=== PATIENT | female | born 1935 | race Caucasian/White ===

== ENCOUNTER 2017-03-16 11:53 | Inpatient (IN) | payer MEDICARE, MEDICAID ==
[2017-03-16 11:53] VITALS: BMI 38.7
[2017-03-16 12:49] LABS: BASO # 0.1 K/uL (0.0-0.2); BASO % 0.4 % (0.0-2.0); EOS # 0.2 K/uL (0.0-0.7); EOS % 1.5 % (0.0-4.0); LYMPH # 1.2 K/uL (1.0-4.3); LYMPH % 8.9 % (20.0-40.0); MEAN CELL VOLUME 73.5 fL (81.0-99.0); MEAN CORPUSCULAR HEMOGLOBIN 23.1 pg (27.0-31.0); MEAN CORPUSCULAR HGB CONC 31.4 g/dL (33.0-37.0); MEAN PLATELET VOLUME 8.4 fL (7.2-11.7); MONO # 0.9 K/uL (0.0-0.8); MONO % 6.8 % (0.0-10.0); PLATELET COUNT 259 K/uL (130-400); RED CELL DISTRIBUTION WIDTH 14.8 % (11.5-14.5)
[2017-03-16 12:58] LABS: INR 1.1
[2017-03-16 13:02] LABS: CHLORIDE 101 mmol/L (98-107); SODIUM 138 mmol/L (132-148)
[2017-03-16 13:03] LABS: GFR AFRICAN-AMERICAN > 60
[2017-03-16 13:04] LABS: ALB/GLOB RATIO 1.1 (1.0-2.1); ALKALINE PHOSPHATASE 111 U/L (38-126); ALT/SGPT 20 U/L (9-52); AST/SGOT 22 U/L (14-36); BILIRUBIN,TOTAL 0.6 mg/dL (0.2-1.3); BLOOD UREA NITROGEN 27 mg/dL (7-17); CALCIUM 8.4 mg/dl (8.6-10.4); CARBON DIOXIDE 28 mmol/L (22-30); GLUCOSE,RANDOM 142 mg/dL (65-105); TOTAL PROTEIN 7.1 g/dL (6.3-8.3)
[2017-03-16 13:09] LABS: EOSINOPHIL 2 % (0-4); TOTAL CELLS COUNTED 100
[2017-03-16 13:10] LABS: NEUTROPHIL 78 % (50-75)
--- NOTE | 2017-03-16 13:15 | C.PDOC ---
History Of Present Illness 81-year-old female presents to the emergency department with complaints of worsening pain to right leg and foot x6 days. Patient states she fell two months ago, was not see in ED or by physician at the time, however symptoms resolved. Patient typically ambulates with a walker at home. She states this pain has been persistent and worsening, making it diffcult for her to ambulate. She denies fever, chest pain, shortness of breath, rash, discharge. Time Seen by Provider: 03/16/17 12:03 Chief Complaint (Nursing): Lower Extremity Problem/Injury History Per: Patient History/Exam Limitations: no limitations Onset/Duration Of Symptoms: Days Current Symptoms Are (Timing): Still Present Severity: Moderate Past Medical History Reviewed: Historical Data, Nursing Documentation, Vital Signs Vital Signs: Last Vital Signs Temp 99.2 F 03/20/17 17:37 Pulse 85 03/20/17 17:37 Resp 20 03/20/17 17:37 BP 144/75 03/20/17 17:37 Pulse Ox 95 03/20/17 17:37 - Medical History PMH: Asthma, COPD, Diabetes, HTN, Hypercholesterolemia Family History: States: No Known Family Hx - Social History Hx Tobacco Use: No Hx Alcohol Use: No Hx Substance Use: No - Immunization History Hx Tetanus Toxoid Vaccination: No Hx Influenza Vaccination: Yes Hx Pneumococcal Vaccination: Yes Review Of Systems Except As Marked, All Systems Reviewed And Found Negative. Constitutional: Negative for: Fever Cardiovascular: Negative for: Chest Pain, Palpitations Respiratory: Negative for: Cough, Shortness of Breath Musculoskeletal: Positive for: Leg Pain (right). Negative for: Back Pain Neurological: Negative for: Weakness, Numbness Physical Exam - Physical Exam Appears: Non-toxic, No Acute Distress, Other (Morbidly obese) Skin: Warm, Dry, No Rash Head: Atraumatic, Normacephalic Eye(s): bilateral: Normal Inspection Oral Mucosa: Moist Cardiovascular: Rhythm Regular Respiratory: Normal Breath Sounds, No Rales, No Rhonchi, No Wheezing Gastrointestinal/Abdominal: Normal Exam, Bowel Sounds, Soft, No Tenderness Back: Normal Inspection, No Vertebral Tenderness, No Paraspinal Tenderness Extremity: Tenderness, Capillary Refill (<2 seconds all digits ), No Deformity, Other (Difficult to appreciate significant swelling due to body habitus, however right lower leg/upper foot warm to touch, with TTP and mild erythema) Pulses: Left Dorsalis Pedis: Normal, Right Dorsalis Pedis: Normal Neurological/Psych: Oriented x3, Normal Motor, Normal Sensation ED Course And Treatment - Laboratory Results Result Diagrams: 03/20/17 08:02 03/20/17 08:02 O2 Sat by Pulse Oximetry: 95 (RA) Pulse Ox Interpretation: Normal - Other Rad right foot Xray X-Ray: Interpreted by Me, Viewed By Me (no fractures/dislocations) right knee xray X-Ray: Interpreted by Me, Viewed By Me (no fractures/dislocations, (+) arthritic changes) Progress Note: Bloodwork, X-Ray R foot and knee, and venous doppler ordered and reviewed. Patient given IV toradol for pain. Dose of IV Vancomycin and Cefepime given for suspected cellulitis. Venous doppler (-) for acute DVT. - Physician Consult Information Physician Contacted: Jess John Outcome Of Conversation: Discussed patient wit Dr. Austin John, agrees with admission for right leg cellulitis, inability to ambulate, unsafe discharge home. Disposition - Disposition Disposition: HOSPITALIZED Disposition Time: 16:05 Condition: STABLE - Clinical Impression Clinical Impression: Cellulitis of right leg, Inability to ambulate due to multiple joints - Scribe Statement The provider has reviewed the documentation as recorded by the Scribfaye Wright All medical record entries made by the Scribe were at my direction and personally dictated by me. I have reviewed the chart and agree that the record accurately reflects my personal performance of the history, physical exam, medical decision making, and the department course for this patient. I have also personally directed, reviewed, and agree with the discharge instructions and disposition. Decision To Admit - Pt Status Changed To: Hospital Disposition Of: Inpatient - Admit Certification Admit to Inpatient:: After my assessment, the patient will require hospitalization for at least two midnights. This is because of the severity of symptoms shown, intensity of services needed, and/or the medical risk in this patient being treated as an outpatient. - InPatient: Physician Admission Certification: I certify that this patient requires 2 or more midnights of care for the following reason:: see notes - . Bed Request Type: Regular Admitting Physician: Jess John Patient Diagnosis: Cellulitis of right leg, Inability to ambulate due to multiple joints
[2017-03-16 13:19] LABS: POTASSIUM 4.5 mmol/L (3.6-5.2)
--- NOTE | 2017-03-16 13:58 | RAD ---
PROCEDURE: Right Knee Radiographs. HISTORY: right knee/lower leg pain COMPARISON: None. FINDINGS: BONES: Normal. No fracture. JOINTS: Tricompartmental degenerative osteoarthritis. JOINT EFFUSION: Questionable trace joint effusion. OTHER FINDINGS: None. IMPRESSION: No acute fracture seen. Tricompartmental DJD.
--- NOTE | 2017-03-16 14:42 | VASCLAB ---
PROCEDURE: Right Lower Extremity Venous Duplex Exam. HISTORY: right leg/foot and swelling, r/o dvt PRIORS: None. TECHNIQUE: Right common femoral, femoral, popliteal and posterior tibial, peroneal and great saphenous veins were evaluated. Flow was assessed with color Doppler, compressibility, assessment of phasic flow and augmentation response. Report prepared by Saleem Hernandez, LORI, RVT FINDINGS: RIGHT: 1. Common Femoral Vein: 1.1. Compressibility - Fully compressible: Thrombus - None: Flow - Phasic: Augmentation -Normal: Reflux - None. 2. Femoral Vein: 2.1. Compressibility - Fully compressible: Thrombus - None: Flow - Phasic: Augmentation -Normal: Reflux - None. 3. Popliteal Vein: 3.1. Compressibility - Fully compressible: Thrombus - None: Flow - Phasic: Augmentation -Normal: Reflux - None. 4. Posterior Tibial Vein: 4.1. Compressibility - Fully compressible: Thrombus - None: Flow - Phasic: Augmentation -Normal: Reflux - None. 5. Peroneal Vein: 5.1. Compressibility - Fully compressible: Thrombus - None: Flow - Phasic: Augmentation -Normal: Reflux - None. 6. Great Saphenous Vein: 6.1. Compressibility - Fully compressible: Thrombus -None: Flow - Phasic: Augmentation - Normal: Reflux - None. OTHER FINDINGS: IMPRESSION: No evidence of deep or superficial vein thrombosis of the right lower extremity with excellent venous flow. Normal valve function noted of the right side. Normal venous flow noted in the left common femoral vein.
[2017-03-16] MEDS ORDERED: Cefepime 1 GM in Sodium Chloride 0.9% 50 ML IVPB STA (16:01)
--- NOTE | 2017-03-16 17:00 | RAD ---
PROCEDURE: Right foot dated 03/16/2017 HISTORY: Right foot pain. COMPARISON: No prior study available comparison FINDINGS: BONES: Current study reveals no definitive radiographic evidence of acute displaced fracture nor dislocation. The osseous structures appear intact so far as can be seen. Mild hallux valgus deformity with overgrowth of the head of the 1st metatarsal and mild DJD 1st MTP joint. There is mild prominence of the soft tissues overlying the medial aspect of the head and more tarsal and MTP joint. In addition, there is mild subcutaneous infiltration changes suggesting edema. Rule out edema related to vascular causes such as pulmonary edema/ CHF or venous stasis. Possibility of cellulitis not excluded Small posterior and plantar calcaneal surface enthesophyte JOINTS: As above. SOFT TISSUES: Normal. OTHER FINDINGS: No radiopaque foreign body seen IMPRESSION: No definitive radiographic evidence of acute displaced fracture nor dislocation. Mild hallux valgus deformity with overgrowth head 1st metatarsal and mild DJD 1st MTP joint. Mild diffuse infiltration changes within the subcutaneous tissues suggesting edema; rule out pulmonary edema/ CHF versus venous stasis did cellulitis not completely excluded.
--- NOTE | 2017-03-16 18:24 | CP.PCM.HP ---
Past Patient History - Past Social History Smoking Status: Never Smoked - CARDIAC Hx Hypercholesterolemia: Yes Hx Hypertension: Yes - PULMONARY Hx Asthma: Yes Hx Chronic Obstructive Pulmonary Disease (COPD): Yes - GASTROINTESTINAL Hx Gastroesophageal Reflux: Yes - PSYCHIATRIC Hx Substance Use: No - ANESTHESIA Hx Anesthesia: No Meds Allergies/Adverse Reactions: Allergies Allergy/AdvReac Type Severity Reaction Status Date / Time No Known Allergies Allergy Verified 11/14/13 10:24 Physical Exam - Constitutional Appears: Well - Head Exam Head Exam: ATRAUMATIC, NORMAL INSPECTION, NORMOCEPHALIC - Eye Exam Eye Exam: EOMI, Normal appearance, PERRL Pupil Exam: NORMAL ACCOMODATION, PERRL - ENT Exam ENT Exam: Mucous Membranes Moist, Normal Exam - Neck Exam Neck exam: Positive for: Normal Inspection - Respiratory Exam Respiratory Exam: Decreased Breath Sounds - Cardiovascular Exam Cardiovascular Exam: REGULAR RHYTHM, +S1, +S2 - GI/Abdominal Exam GI & Abdominal Exam: Diminished Bowel Sounds, Soft - Rectal Exam Rectal Exam: Deferred Results - Vital Signs Recent Vital Signs: Last Vital Signs Temp 97.8 F 03/16/17 17:20 Pulse 90 03/16/17 17:20 Resp 18 03/16/17 17:20 BP 147/75 03/16/17 17:20 Pulse Ox 95 03/16/17 17:20 - Labs Result Diagrams: 03/16/17 12:46 03/16/17 12:46
[2017-03-16] MEDS ORDERED: HYDROmorphone 1 mg/ml ISec IVP PRN (20:49)
[2017-03-16] MEDS ORDERED: HYDROmorphone 1 mg/ml ISec ONE (21:02)
[2017-03-16] MEDS: Ranolazine 500 mg Extended Release Tablets PO SCH (22:47)
[2017-03-17] MEDS ORDERED: Pantoprazole 40 mg EC Tab PO SCH (10:00)
[2017-03-17] MEDS ORDERED: [UNRECOGNIZED DRUG - OTHER] PO SCH (10:00)
[2017-03-17] MEDS ORDERED: Home Med 1 UNIT (Leflunomide [Arava] 20 MG) PO SCH (10:00)
[2017-03-17] MEDS: Pantoprazole 40 mg EC Tab PO SCH (10:26)
[2017-03-17] MEDS: Ranolazine 500 mg Extended Release Tablets PO SCH ×2 (10:27→21:25)
[2017-03-17] MEDS: Enoxaparin 40 mg Syringe SC SCH (10:58)
--- NOTE | 2017-03-17 13:30 | CP.PCM.PN ---
Subjective - Date & Time of Evaluation Date of Evaluation: 03/17/17 Time of Evaluation: 08:40 - Subjective Subjective: clinically same Objective - Vital Signs/Intake and Output Vital Signs (last 24 hours): Temp Pulse Resp BP Pulse Ox 98.4 F 86 20 130/74 96 03/17/17 07:31 03/17/17 07:31 03/17/17 07:31 03/17/17 10:30 03/17/17 07:31 Intake and Output: 03/17/17 03/17/17 06:59 18:59 Intake Total 300 Balance 300 - Medications Medications: Current Medications Aspirin (Ecotrin) 81 mg PO DAILY [facility] Last Admin: 03/17/17 10:25 Dose: 81 mg Colchicine (Colocrys) 0.6 mg PO BID [facility] Last Admin: 03/17/17 10:27 Dose: 0.6 mg Enoxaparin Sodium (Lovenox) 40 mg SC DAILY [facility] Last Admin: 03/17/17 10:58 Dose: 40 mg Furosemide (Lasix) 20 mg PO DAILY [facility] Last Admin: 03/17/17 10:30 Dose: 20 mg Glimepiride (Amaryl) 1 mg PO BID [facility] Last Admin: 03/17/17 10:51 Dose: 1 mg Home Med (Albuterol 0.083%) 1 unit NEB PRN PRN PRN Reason: Wheezing Home Med (Fluticasone/Vilanterol [Breo Ellipta 100-25 Mcg Inh]) 1 each IH DAILY [facility] Home Med (Leflunomide [Arava]) 20 mg PO DAILY [facility] Home Med (Vit C/E/Zn/Coppr/Lutein/Zeaxan [Preservision Areds 2 Softgel]) 1 each PO BID [facility] Hydromorphone HCl (Dilaudid) 1 mg IVP Q8H PRN PRN Reason: Pain, moderate (4-7) Last Admin: 03/16/17 21:09 Dose: 1 mg Cefepime HCl 1 gm/ Dextrose 50 mls @ 100 mls/hr IVPB Q12H [facility] Last Admin: 03/17/17 08:05 Dose: 100 mls/hr Ibuprofen (Motrin Tab) 600 mg PO TID [facility] Last Admin: 03/17/17 10:53 Dose: 600 mg Metformin HCl (Glucophage Xr) 750 mg PO BID [facility] Last Admin: 03/17/17 10:27 Dose: 750 mg Methimazole (Tapazole) 10 mg PO Q7D [facility] Last Admin: 03/17/17 10:58 Dose: 10 mg Methimazole (Tapazole) 10 mg PO Q7D [facility] Metoprolol Tartrate (Lopressor) 100 mg PO BID [facility] Last Admin: 03/17/17 10:25 Dose: 100 mg Pantoprazole Sodium (Protonix Ec Tab) 40 mg PO DAILY [facility] Last Admin: 03/17/17 10:25 Dose: 40 mg Pantoprazole Sodium (Protonix Ec Tab) 40 mg PO DAILY [facility] Last Admin: 03/17/17 10:26 Dose: Not Given Pneumococcal Polyvalent Vaccine (Pneumovax 23 Vaccine) 0.5 ml IM .ONCE ONE Stop: 03/18/17 10:01 Ranolazine (Ranexa) 500 mg PO Q12 [facility] Last Admin: 03/17/17 10:27 Dose: 500 mg - Labs Labs: PT 12.1 SECONDS (9.7-12.2) 03/16/17 12:46 INR 1.1 03/16/17 12:46 APTT 32 SECONDS (21-34) 03/16/17 12:46 - Constitutional Appears: Well - Head Exam Head Exam: ATRAUMATIC, NORMAL INSPECTION, NORMOCEPHALIC - Eye Exam Eye Exam: EOMI, Normal appearance, PERRL Pupil Exam: NORMAL ACCOMODATION, PERRL - ENT Exam ENT Exam: Mucous Membranes Moist, Normal Exam - Neck Exam Neck Exam: Full ROM, Normal Inspection. absent: Lymphadenopathy - Respiratory Exam Respiratory Exam: Decreased Breath Sounds - Cardiovascular Exam Cardiovascular Exam: REGULAR RHYTHM, +S1, +S2 - GI/Abdominal Exam GI & Abdominal Exam: Soft, Diminished Bowel Sounds - Rectal Exam Rectal Exam: Deferred
[2017-03-18 08:09] LABS: BASO # 0.1 K/uL (0.0-0.2); BASO % 1.2 % (0.0-2.0); EOS # 0.5 K/uL (0.0-0.7); EOS % 5.8 % (0.0-4.0); HEMATOCRIT 36.2 % (34.0-47.0); LYMPH % 22.9 % (20.0-40.0); MEAN CELL VOLUME 73.8 fL (81.0-99.0); MEAN CORPUSCULAR HEMOGLOBIN 23.5 pg (27.0-31.0); MEAN CORPUSCULAR HGB CONC 31.8 g/dL (33.0-37.0); MEAN PLATELET VOLUME 8.7 fL (7.2-11.7); RED CELL DISTRIBUTION WIDTH 14.6 % (11.5-14.5); WHITE BLOOD COUNT 8.6 K/uL (4.8-10.8)
[2017-03-18 08:15] LABS: CHLORIDE 103 mmol/L (98-107); POTASSIUM 3.7 mmol/L (3.6-5.2); SODIUM 141 mmol/L (132-148)
[2017-03-18 08:17] LABS: GFR AFRICAN-AMERICAN > 60
[2017-03-18 08:18] LABS: BLOOD UREA NITROGEN 21 mg/dL (7-17); CALCIUM 8.3 mg/dl (8.6-10.4); CARBON DIOXIDE 26 mmol/L (22-30); GLUCOSE,RANDOM 86 mg/dL (65-105)
[2017-03-18] MEDS ORDERED: Pneumococcal 23-Valent Vaccine IM ONE (10:00)
[2017-03-18] MEDS: Ranolazine 500 mg Extended Release Tablets PO SCH ×2 (10:05→21:21)
[2017-03-18] MEDS: Enoxaparin 40 mg Syringe SC SCH (10:07)
[2017-03-18] MEDS: Pantoprazole 40 mg EC Tab PO SCH (10:08)
--- NOTE | 2017-03-18 11:22 | CP.PCM.PN ---
Subjective - Date & Time of Evaluation Date of Evaluation: 03/18/17 Objective - Vital Signs/Intake and Output Vital Signs (last 24 hours): Temp Pulse Resp BP Pulse Ox 97.5 F L 65 16 140/70 97 03/17/17 23:08 03/17/17 23:08 03/17/17 23:08 03/18/17 10:11 03/17/17 23:08 - Medications Medications: Current Medications Aspirin (Ecotrin) 81 mg PO DAILY [facility] Last Admin: 03/18/17 10:08 Dose: 81 mg Colchicine (Colocrys) 0.6 mg PO BID [facility] Last Admin: 03/18/17 10:05 Dose: 0.6 mg Enoxaparin Sodium (Lovenox) 40 mg SC DAILY [facility] Last Admin: 03/18/17 10:07 Dose: 40 mg Furosemide (Lasix) 20 mg PO DAILY [facility] Last Admin: 03/18/17 10:11 Dose: 20 mg Glimepiride (Amaryl) 1 mg PO BID [facility] Last Admin: 03/17/17 18:46 Dose: 1 mg Home Med (Albuterol 0.083%) 1 unit NEB PRN PRN PRN Reason: Wheezing Home Med (Fluticasone/Vilanterol [Breo Ellipta 100-25 Mcg Inh]) 1 each IH DAILY [facility] Home Med (Leflunomide [Arava]) 20 mg PO DAILY [facility] Home Med (Vit C/E/Zn/Coppr/Lutein/Zeaxan [Preservision Areds 2 Softgel]) 1 each PO BID [facility] Hydromorphone HCl (Dilaudid) 1 mg IVP Q8H PRN PRN Reason: Pain, moderate (4-7) Last Admin: 03/16/17 21:09 Dose: 1 mg Cefepime HCl 1 gm/ Dextrose 50 mls @ 100 mls/hr IVPB Q12H [facility] Last Admin: 03/18/17 10:00 Dose: 100 mls/hr Ibuprofen (Motrin Tab) 600 mg PO TID [facility] Last Admin: 03/18/17 10:18 Dose: 600 mg Metformin HCl (Glucophage Xr) 750 mg PO BID [facility] Last Admin: 03/18/17 10:05 Dose: 750 mg Methimazole (Tapazole) 10 mg PO Q7D [facility] Last Admin: 03/18/17 10:06 Dose: 10 mg Methimazole (Tapazole) 10 mg PO Q7D [facility] Last Admin: 03/18/17 10:10 Dose: Not Given Metoprolol Tartrate (Lopressor) 100 mg PO BID [facility] Last Admin: 03/18/17 10:13 Dose: 100 mg Pantoprazole Sodium (Protonix Ec Tab) 40 mg PO DAILY [facility] Last Admin: 03/18/17 10:08 Dose: 40 mg Ranolazine (Ranexa) 500 mg PO Q12 [facility] Last Admin: 03/18/17 10:05 Dose: 500 mg - Labs Labs: 03/18/17 07:56 03/18/17 07:56 PT 12.1 SECONDS (9.7-12.2) 03/16/17 12:46 INR 1.1 03/16/17 12:46 APTT 32 SECONDS (21-34) 03/16/17 12:46 Assessment and Plan - Assessment and Plan (Free Text) Plan: venous doppler neg leg better knee xray an dfoot xray unremarkable neal same
--- NOTE | 2017-03-18 16:21 | CP.PCM.CON ---
History of Present Illness - History of Present Illness History of Present Illness: 81-year-old female, presents to the emergency department with complaints of worsening pain to right leg and foot x6 days. Patient states she fell two months ago. States that she wasn't seen in hospital, and felt fine afterward. Patient typically ambulates with a walker, and pain has been persistent, resulting in her coming to ED for evaluation. Denies fevers, shortness of breath or chest pain. No other complaints at this time. - Medical History PMH: Asthma, COPD, Diabetes, HTN, Hypercholesterolemia Family History: States: No Known Family Hx Review of Systems - Constitutional Constitutional: As Per HPI - EENT Eyes: absent: As Per HPI, Blind Spots, Blurred Vision, Change in Vision, Decreased Night Vision, Diplopia, Discharge, Dry Eye, Exophthalmos, Floaters, Irritation, Itchy Eyes, Loss of Peripheral Vision, Pain, Photophobia, Requires Corrective Lenses, Sees Flashes, Spots in Vision, Tunnel Vision, Other Visual Disturbances, Loss of Vision, Other Ears: absent: As Per HPI, Decreased Hearing, Ear Discharge, Ear Pain, Tinnitus, Abnormal Hearing, Disequilibrium, Dizziness, Other Nose/Mouth/Throat: absent: As Per HPI, Epistaxis, Nasal Congestion, Nasal Discharge, Nasal Obstruction, Nasal Trauma, Nose Pain, Post Nasal Drip, Sinus Pain, Sinus Pressure, Bleeding Gums, Change in Voice, Dental Pain, Dry Mouth, Dysphagia, Halitosis, Hoarsness, Lip Swelling, Mouth Lesions, Mouth Pain, Odynophagia, Sore Throat, Throat Swelling, Tongue Swelling, Facial Pain, Neck Pain, Neck Mass, Other - Breasts Breasts: absent: As Per HPI, Change in Shape, Mass, Pain, Nipple Discharge, Nipple Inversion, Skin Changes, Swelling, Other - Cardiovascular Cardiovascular: absent: As Per HPI, Acrocyanosis, Chest Pain, Chest Pain at Rest , Chest Pain with Activity, Claudication, Diaphoresis, Dyspnea, Dyspnea on Exertion, Edema, Irregular Heart Rhythm, Pain Radiating to Arm/Neck/Jaw, Leg Edema, Leg Ulcers, Lightheadedness, Orthopnea, Palpitations, Paroxysmal Nocturnal Dyspnea, Pedal Edema, Radiating Pain, Rapid Heart Rate, Slow Heart Rate, Syncope, Other - Respiratory Respiratory: absent: As Per HPI, Cough, Dyspnea, Hemoptysis, Dyspnea on Exertion , Wheezing, Snoring, Stridor, Pain on Inspiration, Chest Congestion, Excessive Mucous Production, Change in Mucous Color, Pain with Coughing, Other - Gastrointestinal Gastrointestinal: absent: As Per HPI, Abdominal Pain, Belching, Bloating, Change in Bowel Habits, Change in Stool Character, Coffee Ground Emesis, Constipation, Cramping, Diarrhea, Dyspepsia, Dysphagia, Early Satiety, Excessive Flatus, Fecal Incontinence, Heartburn, Hematemesis, Hematochezia, Loose Stools, Melena, Nausea, Odynophagia, Temesmus, Vomiting, Other - Genitourinary Genitourinary: absent: As Per HPI, Change in Urinary Stream, Difficulty Urinating, Dysuria, Flank Pain, Hematuria, Pyuria, Nocturia, Urinary Incontinence, Urinary Frequency, Urinary Hesitance, Urinary Urgency, Voiding Freq/Small Amts, Freq UTI, Hx Renal/Bladder Calculi, Hx /Renal Surgery, Bladder Distension, Other - Reproductive: Female Reproductive:Female: absent: As Per HPI, Amenorrhea, Amenorrhea/ Control, Currently Menstual, Cycle <21 Days, Cycle >35 Days, Cycle Variable, Menses 1-7 Days, Menses >/= 8 Days, Menses Variable, Cycle > 4 Weeks Between, No Menses for 6 Months, Heavy Menses, Light Menses, Normal Menses, Spotting Between Cycles , S/P Hysterectomy, Menopausal, Post Menopausal, Premenarche, Abnormal Vaginal Bleeding, Dysmenorrhea, Dyspareunia, Genital Lesions, Genital Pruritis, Pelvic Pain, Prolapse Symptoms, Sexual Dysfunction, Vaginal Discharge, Vaginal Dryness , Vaginal Odor, Vaginal Pruritis, Other - Menstruation Menstruation: absent: As Per HPI, Amenorrhea, Amenorrhea/ Control, Currently Menstual, Cycle <21 Days, Cycle >35 Days, Cycle Variable, Menses 1-7 Days, Menses >/= 8 Days, Menses Variable, Cycle > 4 Weeks Between, No Menses for 6 Months, Heavy Menses, Light Menses, Normal Menses, Spotting Between Cycles , S/P Hysterectomy, Menopausal, Post Menopausal, Premenarche, Abnormal Vaginal Bleeding, Dysmenorrhea, Other - Musculoskeletal Musculoskeletal: As Per HPI - Integumentary Integumentary: As Per HPI - Neurological Neurological: absent: As Per HPI, Abnormal Gait, Abnormal Hearing, Abnormal Movements, Abnormal Speech, Behavioral Changes, Burning Sensations, Confusion, Convulsions, Disequilibrium, Dizziness, Numbness, Focal Weakness, Frequent Falls , Headaches, Lack of Coordination, Loss of Vision, Memory Loss, Paresthesias, Radicular Pain, Restless Legs, Sensory Deficit, Syncope, Tingling, Tremor, Vertigo, Weakness, Other Visual Disturbances, Other - Psychiatric Psychiatric: absent: As Per HPI, Abnormal Sleep Pattern, Anhedonia, Anxiety, Auditory Hallucinations, Behavioral Changes, Change in Appetite, Change in Libido, Confusion, Depression, Difficulty Concentrating, Hallucinations, Homicidal Ideation, Hopelessness, Irritability, Memory Loss, Mood Swings, Panic Attacks, Paranoia, Suicidal Ideation, Visual Hallucinations, Tactile Hallucinations, Other - Endocrine Endocrine: absent: As Per HPI, Change in Body Appearance, Change in Libido, Cold Intolorance, Deepening of Voice, Excessive Sweating, Fatigue, Flushing, Heat Intolorance, Increase in Ring/Shoe/Hat Size, Palpitations, Polydipsia, Polyphagia, Polyuria, Other - Hematologic/Lymphatic Hematologic: absent: As Per HPI, Easy Bleeding, Easy Bruising, Lymphadenopathy, Other Past Patient History - Past Social History Smoking Status: Never Smoked - CARDIAC Hx Hypercholesterolemia: Yes Hx Hypertension: Yes - PULMONARY Hx Chronic Obstructive Pulmonary Disease (COPD): Yes - ENDOCRINE/METABOLIC Hx Diabetes Mellitus Type 2: Yes - MUSCULOSKELETAL/RHEUMATOLOGICAL Hx Arthritis: Yes - GASTROINTESTINAL Hx Gastroesophageal Reflux: Yes - PSYCHIATRIC Hx Substance Use: No - SURGICAL HISTORY Other/Comment: myomectomy,right breast cyst removal - ANESTHESIA Hx Anesthesia: No Hx Anesthesia Reactions: No Hx Malignant Hyperthermia: No Has any member of the family had a problem w/ anesthesia?: No Meds Allergies/Adverse Reactions: Allergies Allergy/AdvReac Type Severity Reaction Status Date / Time shrimp Allergy ITCHING Verified 03/16/17 22:38 - Medications Medications: Current Medications Albuterol Sulfate (Albuterol 0.083% Inhal Tete (2.5 Mg/3 Ml) Ud) 3 mg INH RQ6 [facility] Aspirin (Ecotrin) 81 mg PO DAILY [facility] Last Admin: 03/18/17 10:08 Dose: 81 mg Colchicine (Colocrys) 0.6 mg PO BID [facility] Last Admin: 03/18/17 10:05 Dose: 0.6 mg Enoxaparin Sodium (Lovenox) 40 mg SC DAILY [facility] Last Admin: 03/18/17 10:07 Dose: 40 mg Furosemide (Lasix) 20 mg PO DAILY [facility] Last Admin: 03/18/17 10:11 Dose: 20 mg Glimepiride (Amaryl) 1 mg PO BID [facility] Last Admin: 03/18/17 10:30 Dose: 1 mg Home Med (Leflunomide [Arava]) 20 mg PO DAILY [facility] Home Med (Vit C/E/Zn/Coppr/Lutein/Zeaxan [Preservision Areds 2 Softgel]) 1 each PO BID [facility] Hydromorphone HCl (Dilaudid) 1 mg IVP Q8H PRN PRN Reason: Pain, moderate (4-7) Last Admin: 03/16/17 21:09 Dose: 1 mg Cefepime HCl 1 gm/ Dextrose 50 mls @ 100 mls/hr IVPB Q12H [facility] Last Admin: 03/18/17 10:00 Dose: 100 mls/hr Ibuprofen (Motrin Tab) 600 mg PO TID [facility] Last Admin: 03/18/17 14:35 Dose: 600 mg Metformin HCl (Glucophage Xr) 750 mg PO BID [facility] Last Admin: 03/18/17 10:05 Dose: 750 mg Methimazole (Tapazole) 10 mg PO Q7D [facility] Last Admin: 03/18/17 10:06 Dose: 10 mg Methimazole (Tapazole) 10 mg PO Q7D [facility] Last Admin: 03/18/17 10:10 Dose: Not Given Metoprolol Tartrate (Lopressor) 100 mg PO BID [facility] Last Admin: 03/18/17 10:13 Dose: 100 mg Pantoprazole Sodium (Protonix Ec Tab) 40 mg PO DAILY [facility] Last Admin: 03/18/17 10:08 Dose: 40 mg Ranolazine (Ranexa) 500 mg PO Q12 [facility] Last Admin: 03/18/17 10:05 Dose: 500 mg Fluticasone/Salmeterol (Advair Diskus 250/50) 1 puff INH RQ12 [facility] Physical Exam - Constitutional Appears: Non-toxic, Chronically Ill - Head Exam Head Exam: NORMOCEPHALIC - Eye Exam Eye Exam: PERRL. absent: Scleral icterus - ENT Exam ENT Exam: Mucous Membranes Dry, Normal External Ear Exam, Normal Oropharynx - Neck Exam Neck exam: Negative for: Lymphadenopathy, Thyromegaly - Respiratory Exam Respiratory Exam: Decreased Breath Sounds, Clear to Auscultation Bilateral - Cardiovascular Exam Cardiovascular Exam: REGULAR RHYTHM, +S1, +S2 - GI/Abdominal Exam GI & Abdominal Exam: Diminished Bowel Sounds, Normal Bowel Sounds, Soft. absent : Tenderness - Rectal Exam Rectal Exam: Deferred - Exam Exam: NORMAL INSPECTION - Extremities Exam Extremities exam: Positive for: pedal pulses present. Negative for: calf tenderness, pedal edema, tenderness Additional comments: + cellulitis - Back Exam Back exam: absent: CVA tenderness (L), CVA tenderness (R) - Neurological Exam Neurological exam: Alert, CN II-XII Intact, Oriented x3, Reflexes Normal - Psychiatric Exam Psychiatric exam: Normal Mood - Skin Skin Exam: Dry, Intact Results - Vital Signs Recent Vital Signs: Last Vital Signs Temp 98.1 F 03/18/17 15:00 Pulse 80 03/18/17 15:00 Resp 20 03/18/17 15:00 BP 149/69 03/18/17 15:00 Pulse Ox 95 03/18/17 15:00 - Labs Result Diagrams: 03/18/17 07:56 03/18/17 07:56 Labs: Laboratory Results - last 24 hr 03/18/17 03/18/17 03/18/17 07:31 07:56 07:56 WBC 8.6 RBC 4.90 Hgb 11.5 Hct 36.2 MCV 73.8 L MCH 23.5 L MCHC 31.8 L RDW 14.6 H Plt Count 287 MPV 8.7 Neut % (Auto) 59.1 Lymph % (Auto) 22.9 [place] % (Auto) 11.0 H Eos % (Auto) 5.8 H Baso % (Auto) 1.2 Neut # 5.1 Lymph # 2.0 [place] # 1.0 H Eos # 0.5 Baso # 0.1 Sodium 141 Potassium 3.7 Chloride 103 Carbon Dioxide 26 Anion Gap 16 BUN 21 H Creatinine 0.7 Est GFR ( Amer) > 60 Est GFR (Non-Af Amer) > 60 POC Glucose (mg/dL) 103 Random Glucose 86 Calcium 8.3 L 03/18/17 03/18/17 11:54 16:07 WBC RBC Hgb Hct MCV MCH MCHC RDW Plt Count MPV Neut % (Auto) Lymph % (Auto) [place] % (Auto) Eos % (Auto) Baso % (Auto) Neut # Lymph # [place] # Eos # Baso # Sodium Potassium Chloride Carbon Dioxide Anion Gap BUN Creatinine Est GFR ( Amer) Est GFR (Non-Af Amer) POC Glucose (mg/dL) 166 H 165 H Random Glucose Calcium Assessment & Plan (1) Cellulitis and abscess of left leg Status: Acute (2) Cellulitis and abscess of left leg Status: Acute - Assessment and Plan (Free Text) Assessment: cont rx
[2017-03-18 19:48] LABS: RBC URINE 3 /hpf (0-3); URINE BACTERIA RARE (<OCC); URINE BILIRUBIN NEGATIVE (NEGATIVE); URINE COLOR Yellow (YELLOW); URINE GLUCOSE (UA) NORMAL (Normal); URINE KETONE NEGATIVE (NEGATIVE); URINE LEUKOCYTE ESTERASE NEG Leu/uL (Negative); URINE PROTEIN NEGATIVE (NEGATIVE); URINE UROBILINOGEN NORMAL mg/dL (0.2-1.0); WBC URINE 1 /hpf (0-5)
[2017-03-18 19:51] LABS: URINE BLOOD TRACE (NEGATIVE)
[2017-03-18] MEDS ORDERED: Albuterol 0.083% Inhal Sol (2.5 mg/3 mL) UD INH SCH (20:00)
[2017-03-18] MEDS ORDERED: Fluticasone-Salmeterol 250-50mcg Diskus INH SCH (20:00)
--- NOTE | 2017-03-19 08:53 | CP.PCM.PN ---
Subjective - Date & Time of Evaluation Date of Evaluation: 03/19/17 Time of Evaluation: 10:00 - Subjective Subjective: Dr. John service note: Patient seen and examined in room. She is complaining of pain in both her legs but no fever or chills. Objective - Vital Signs/Intake and Output Vital Signs (last 24 hours): Temp Pulse Resp BP Pulse Ox 96.6 F L 65 16 123/71 99 03/18/17 23:13 03/18/17 23:13 03/18/17 23:13 03/18/17 23:13 03/18/17 23:13 Intake and Output: 03/19/17 03/19/17 06:59 18:59 Intake Total 150 Balance 150 - Medications Medications: Current Medications Albuterol Sulfate (Albuterol 0.083% Inhal Tete (2.5 Mg/3 Ml) Ud) 3 mg INH RQ6 [facility] Aspirin (Ecotrin) 81 mg PO DAILY [facility] Last Admin: 03/18/17 10:08 Dose: 81 mg Colchicine (Colocrys) 0.6 mg PO BID [facility] Last Admin: 03/18/17 21:21 Dose: 0.6 mg Enoxaparin Sodium (Lovenox) 40 mg SC DAILY [facility] Last Admin: 03/18/17 10:07 Dose: 40 mg Furosemide (Lasix) 20 mg PO DAILY [facility] Last Admin: 03/18/17 10:11 Dose: 20 mg Glimepiride (Amaryl) 1 mg PO BID [facility] Last Admin: 03/18/17 17:27 Dose: 1 mg Home Med (Leflunomide [Arava]) 20 mg PO DAILY [facility] Home Med (Vit C/E/Zn/Coppr/Lutein/Zeaxan [Preservision Areds 2 Softgel]) 1 each PO BID [facility] Hydromorphone HCl (Dilaudid) 1 mg IVP Q8H PRN PRN Reason: Pain, moderate (4-7) Last Admin: 03/16/17 21:09 Dose: 1 mg Cefepime HCl 1 gm/ Dextrose 50 mls @ 100 mls/hr IVPB Q12H [facility] Last Admin: 03/18/17 20:50 Dose: 100 mls/hr Ibuprofen (Motrin Tab) 600 mg PO TID [facility] Last Admin: 03/18/17 17:30 Dose: 600 mg Metformin HCl (Glucophage Xr) 750 mg PO BID [facility] Last Admin: 03/18/17 17:27 Dose: 750 mg Methimazole (Tapazole) 10 mg PO Q7D [facility] Last Admin: 03/18/17 10:06 Dose: 10 mg Methimazole (Tapazole) 10 mg PO Q7D [facility] Last Admin: 03/18/17 10:10 Dose: Not Given Metoprolol Tartrate (Lopressor) 100 mg PO BID [facility] Last Admin: 03/18/17 17:27 Dose: 100 mg Pantoprazole Sodium (Protonix Ec Tab) 40 mg PO DAILY [facility] Last Admin: 03/18/17 10:08 Dose: 40 mg Ranolazine (Ranexa) 500 mg PO Q12 [facility] Last Admin: 03/18/17 21:21 Dose: 500 mg Fluticasone/Salmeterol (Advair Diskus 250/50) 1 puff INH RQ12 [facility] - Labs Labs: 03/18/17 07:56 03/18/17 07:56 PT 12.1 SECONDS (9.7-12.2) 03/16/17 12:46 INR 1.1 03/16/17 12:46 APTT 32 SECONDS (21-34) 03/16/17 12:46 - Constitutional Appears: Non-toxic, No Acute Distress - Head Exam Head Exam: NORMAL INSPECTION - Eye Exam Eye Exam: Normal appearance - ENT Exam ENT Exam: Normal Exam - Neck Exam Neck Exam: Normal Inspection - Respiratory Exam Respiratory Exam: Clear to Ausculation Bilateral. absent: Rales, Rhonchi, Wheezes - Cardiovascular Exam Cardiovascular Exam: REGULAR RHYTHM, RRR, +S1, +S2. absent: Gallop, Rubs - GI/Abdominal Exam GI & Abdominal Exam: Soft, Normal Bowel Sounds. absent: Tenderness - Extremities Exam Extremities Exam: Normal Inspection. absent: Pedal Edema - Back Exam Back Exam: NORMAL INSPECTION - Neurological Exam Neurological Exam: Alert - Psychiatric Exam Psychiatric exam: Normal Affect, Normal Mood - Skin Skin Exam: Normal Color Assessment and Plan (1) Cellulitis and abscess of left leg Assessment & Plan: ON IV antibiotics, Dr. Castano consulted day 3 of IV cefepime. discharge pending physical therapy and authorization for possible BETSY. Status: Acute (2) Diabetes mellitus Assessment & Plan: continue Metformin and Amaryl Status: Chronic (3) HTN (hypertension) Assessment & Plan: continue current management Status: Chronic (4) Hyperthyroidism Assessment & Plan: continue home medication Status: Chronic (5) COPD (chronic obstructive pulmonary disease) Assessment & Plan: Duonebs prn, Advair Status: Chronic (6) Prophylactic measure Assessment & Plan: protonix and Lovenox Status: Acute
[2017-03-19 10:23] VITALS: RESP 20
[2017-03-19] MEDS: Pantoprazole 40 mg EC Tab PO SCH (11:50)
[2017-03-19] MEDS: Ranolazine 500 mg Extended Release Tablets PO SCH ×2 (11:50→21:44)
[2017-03-19] MEDS: Enoxaparin 40 mg Syringe SC SCH (11:53)
--- NOTE | 2017-03-19 15:48 | CP.PCM.PN ---
Subjective - Date & Time of Evaluation Date of Evaluation: 03/19/17 Time of Evaluation: 08:00 - Subjective Subjective: clinically same Objective - Vital Signs/Intake and Output Vital Signs (last 24 hours): Temp Pulse Resp BP Pulse Ox 97.5 F L 99 H 20 160/73 H 93 L 03/19/17 07:00 03/19/17 07:00 03/19/17 07:00 03/19/17 11:52 03/19/17 07:00 Intake and Output: 03/19/17 03/19/17 06:59 18:59 Intake Total 150 Balance 150 - Medications Medications: Current Medications Albuterol Sulfate (Albuterol 0.083% Inhal Tete (2.5 Mg/3 Ml) Ud) 3 mg INH RQ6 [facility] Aspirin (Ecotrin) 81 mg PO DAILY [facility] Last Admin: 03/19/17 11:50 Dose: 81 mg Colchicine (Colocrys) 0.6 mg PO BID [facility] Last Admin: 03/19/17 11:51 Dose: 0.6 mg Enoxaparin Sodium (Lovenox) 40 mg SC DAILY [facility] Last Admin: 03/19/17 11:53 Dose: 40 mg Furosemide (Lasix) 20 mg PO DAILY [facility] Last Admin: 03/19/17 11:52 Dose: 20 mg Glimepiride (Amaryl) 1 mg PO BID [facility] Last Admin: 03/19/17 12:08 Dose: 1 mg Home Med (Leflunomide [Arava]) 20 mg PO DAILY [facility] Home Med (Vit C/E/Zn/Coppr/Lutein/Zeaxan [Preservision Areds 2 Softgel]) 1 each PO BID [facility] Hydromorphone HCl (Dilaudid) 1 mg IVP Q8H PRN PRN Reason: Pain, moderate (4-7) Last Admin: 03/16/17 21:09 Dose: 1 mg Cefepime HCl 1 gm/ Dextrose 50 mls @ 100 mls/hr IVPB Q12H [facility] Last Admin: 03/19/17 11:54 Dose: 100 mls/hr Ibuprofen (Motrin Tab) 600 mg PO TID [facility] Last Admin: 03/19/17 15:31 Dose: 600 mg Metformin HCl (Glucophage Xr) 750 mg PO BID [facility] Last Admin: 03/19/17 11:50 Dose: 750 mg Methimazole (Tapazole) 10 mg PO Q7D [facility] Last Admin: 03/18/17 10:06 Dose: 10 mg Methimazole (Tapazole) 10 mg PO Q7D [facility] Last Admin: 03/18/17 10:10 Dose: Not Given Metoprolol Tartrate (Lopressor) 100 mg PO BID [facility] Last Admin: 03/19/17 11:52 Dose: 100 mg Pantoprazole Sodium (Protonix Ec Tab) 40 mg PO DAILY [facility] Last Admin: 03/19/17 11:50 Dose: 40 mg Ranolazine (Ranexa) 500 mg PO Q12 [facility] Last Admin: 03/19/17 11:50 Dose: 500 mg Fluticasone/Salmeterol (Advair Diskus 250/50) 1 puff INH RQ12 [facility] - Labs Labs: 03/18/17 07:56 03/18/17 07:56 PT 12.1 SECONDS (9.7-12.2) 03/16/17 12:46 INR 1.1 03/16/17 12:46 APTT 32 SECONDS (21-34) 03/16/17 12:46 - Constitutional Appears: Well - Head Exam Head Exam: ATRAUMATIC, NORMAL INSPECTION, NORMOCEPHALIC - Eye Exam Eye Exam: EOMI, Normal appearance, PERRL Pupil Exam: NORMAL ACCOMODATION, PERRL - ENT Exam ENT Exam: Mucous Membranes Moist, Normal Exam - Neck Exam Neck Exam: Full ROM, Normal Inspection. absent: Lymphadenopathy - Respiratory Exam Respiratory Exam: Decreased Breath Sounds - Cardiovascular Exam Cardiovascular Exam: REGULAR RHYTHM, +S1, +S2 - GI/Abdominal Exam GI & Abdominal Exam: Soft, Diminished Bowel Sounds - Rectal Exam Rectal Exam: Deferred
[2017-03-20 08:17] LABS: BASO # 0.1 K/uL (0.0-0.2); BASO % 1.2 % (0.0-2.0); EOS # 0.4 K/uL (0.0-0.7); EOS % 3.6 % (0.0-4.0); HEMATOCRIT 38.7 % (34.0-47.0); LYMPH # 1.9 K/uL (1.0-4.3); LYMPH % 18.4 % (20.0-40.0); MEAN CELL VOLUME 73.6 fL (81.0-99.0); MEAN CORPUSCULAR HEMOGLOBIN 23.2 pg (27.0-31.0); MEAN CORPUSCULAR HGB CONC 31.6 g/dL (33.0-37.0); MEAN PLATELET VOLUME 8.3 fL (7.2-11.7); MONO # 0.8 K/uL (0.0-0.8); MONO % 7.7 % (0.0-10.0); NRBC % 0.1 % (0.0-2.0); RED CELL DISTRIBUTION WIDTH 14.8 % (11.5-14.5); WHITE BLOOD COUNT 10.2 K/uL (4.8-10.8)
[2017-03-20 08:40] LABS: CHLORIDE 102 mmol/L (98-107)
[2017-03-20 08:41] LABS: POTASSIUM 3.8 mmol/L (3.6-5.2); SODIUM 138 mmol/L (132-148)
[2017-03-20 08:43] LABS: ALB/GLOB RATIO 1.1 (1.0-2.1); ALKALINE PHOSPHATASE 107 U/L (38-126); ALT/SGPT 18 U/L (9-52); AST/SGOT 23 U/L (14-36); BILIRUBIN,TOTAL 0.6 mg/dL (0.2-1.3); BLOOD UREA NITROGEN 26 mg/dL (7-17); CARBON DIOXIDE 24 mmol/L (22-30); GFR AFRICAN-AMERICAN > 60; GLUCOSE,RANDOM 88 mg/dL (65-105); PHOSPHOROUS 3.9 mg/dL (2.5-4.5); TOTAL PROTEIN 7.3 g/dL (6.3-8.3)
[2017-03-20 08:44] LABS: CALCIUM 8.5 mg/dl (8.6-10.4); MAGNESIUM 1.6 mg/dL (1.6-2.3)
[2017-03-20] MEDS: Ranolazine 500 mg Extended Release Tablets PO SCH (09:27)
[2017-03-20] MEDS: Pantoprazole 40 mg EC Tab PO SCH (09:27)
[2017-03-20] MEDS: Enoxaparin 40 mg Syringe SC SCH (09:28)
--- NOTE | 2017-03-20 09:56 | CP.PCM.PN ---
Subjective - Date & Time of Evaluation Date of Evaluation: 03/20/17 Time of Evaluation: 10:00 - Subjective Subjective: Dr. John service: Patient is seen in room. She says her pain has improved, she denies fever and chills, nausea, vomiting, or diarrhea. She is asking to go home and refusing to go to rehab. She has adult baby sitting with physical therapy. Objective - Vital Signs/Intake and Output Vital Signs (last 24 hours): Temp Pulse Resp BP Pulse Ox 99 F 102 H 20 177/81 H 96 03/20/17 08:00 03/20/17 08:00 03/20/17 08:00 03/20/17 09:27 03/20/17 08:00 Intake and Output: 03/20/17 03/20/17 06:59 18:59 Intake Total 510 Balance 510 - Medications Medications: Current Medications Albuterol Sulfate (Albuterol 0.083% Inhal Tete (2.5 Mg/3 Ml) Ud) 3 mg INH RQ6 [facility] Aspirin (Ecotrin) 81 mg PO DAILY [facility] Last Admin: 03/20/17 09:27 Dose: 81 mg Colchicine (Colocrys) 0.6 mg PO BID [facility] Last Admin: 03/19/17 11:51 Dose: 0.6 mg Enoxaparin Sodium (Lovenox) 40 mg SC DAILY [facility] Last Admin: 03/20/17 09:28 Dose: 40 mg Enoxaparin Sodium (Lovenox) 30 mg SC DAILY [facility] Last Admin: 03/20/17 09:31 Dose: Not Given Furosemide (Lasix) 20 mg PO DAILY [facility] Last Admin: 03/20/17 09:27 Dose: 20 mg Glimepiride (Amaryl) 1 mg PO BID [facility] Last Admin: 03/20/17 09:27 Dose: 1 mg Home Med (Leflunomide [Arava]) 20 mg PO DAILY [facility] Home Med (Vit C/E/Zn/Coppr/Lutein/Zeaxan [Preservision Areds 2 Softgel]) 1 each PO BID [facility] Hydromorphone HCl (Dilaudid) 1 mg IVP Q8H PRN PRN Reason: Pain, moderate (4-7) Last Admin: 03/16/17 21:09 Dose: 1 mg Cefepime HCl 1 gm/ Dextrose 50 mls @ 100 mls/hr IVPB Q12H [facility] Last Admin: 03/20/17 08:03 Dose: 100 mls/hr Ibuprofen (Motrin Tab) 600 mg PO TID [facility] Last Admin: 03/20/17 09:27 Dose: 600 mg Metformin HCl (Glucophage Xr) 750 mg PO BID [facility] Last Admin: 03/20/17 09:26 Dose: 750 mg Methimazole (Tapazole) 10 mg PO Q7D [facility] Last Admin: 03/18/17 10:06 Dose: 10 mg Methimazole (Tapazole) 10 mg PO Q7D [facility] Last Admin: 03/18/17 10:10 Dose: Not Given Metoprolol Tartrate (Lopressor) 100 mg PO BID [facility] Last Admin: 03/20/17 09:31 Dose: 100 mg Pantoprazole Sodium (Protonix Ec Tab) 40 mg PO DAILY [facility] Last Admin: 03/20/17 09:27 Dose: 40 mg Pantoprazole Sodium (Protonix Ec Tab) 20 mg PO DAILY [facility] Last Admin: 03/20/17 09:28 Dose: 20 mg Ranolazine (Ranexa) 500 mg PO Q12 [facility] Last Admin: 03/20/17 09:27 Dose: 500 mg Fluticasone/Salmeterol (Advair Diskus 250/50) 1 puff INH RQ12 [facility] - Labs Labs: 03/20/17 08:02 03/20/17 08:02 PT 12.1 SECONDS (9.7-12.2) 03/16/17 12:46 INR 1.1 03/16/17 12:46 APTT 32 SECONDS (21-34) 03/16/17 12:46 - Constitutional Appears: Non-toxic, No Acute Distress - Head Exam Head Exam: NORMAL INSPECTION - Eye Exam Eye Exam: Normal appearance - Respiratory Exam Respiratory Exam: Clear to Ausculation Bilateral. absent: Rhonchi, Wheezes - Cardiovascular Exam Cardiovascular Exam: REGULAR RHYTHM - GI/Abdominal Exam GI & Abdominal Exam: Soft, Normal Bowel Sounds. absent: Tenderness - Extremities Exam Extremities Exam: Normal Inspection - Back Exam Back Exam: NORMAL INSPECTION Assessment and Plan (1) Cellulitis and abscess of left leg Assessment & Plan: Patient discharged with 4 days of PO antibiotics, she will continue physical therapy at home with adult day care system. She needs Status: Acute (2) Diabetes mellitus Status: Chronic (3) HTN (hypertension) Status: Chronic (4) Hyperthyroidism Status: Chronic (5) COPD (chronic obstructive pulmonary disease) Status: Chronic (6) Prophylactic measure Status: Acute
[2017-03-20] MEDS ORDERED: Pantoprazole 20 mg EC Tab PO SCH (10:00)
[2017-03-20] MEDS ORDERED: Enoxaparin 30 mg Syringe SC SCH (10:00)
--- NOTE | 2017-03-20 12:13 | CP.PCM.PN ---
Subjective - Date & Time of Evaluation Date of Evaluation: 03/20/17 Time of Evaluation: 07:00 - Subjective Subjective: worsening pain to right leg and foot x6 days. Patient states she fell two months ago. States that she wasn't seen in hospital, and felt fine afterward. Patient typically ambulates with a walker, and pain has been persistent, resulting in her coming to ED for evaluation. Denies fevers, shortness of breath or chest pain. No other complaints at this time. Objective - Vital Signs/Intake and Output Vital Signs (last 24 hours): Temp Pulse Resp BP Pulse Ox 99 F 102 H 20 165/81 H 97 03/20/17 08:00 03/20/17 08:00 03/20/17 08:00 03/20/17 10:30 03/20/17 10:30 Intake and Output: 03/20/17 03/20/17 06:59 18:59 Intake Total 510 Balance 510 - Medications Medications: Current Medications Albuterol Sulfate (Albuterol 0.083% Inhal Tete (2.5 Mg/3 Ml) Ud) 3 mg INH RQ6 [facility] Aspirin (Ecotrin) 81 mg PO DAILY [facility] Last Admin: 03/20/17 09:27 Dose: 81 mg Colchicine (Colocrys) 0.6 mg PO BID [facility] Last Admin: 03/19/17 11:51 Dose: 0.6 mg Enoxaparin Sodium (Lovenox) 40 mg SC DAILY [facility] Last Admin: 03/20/17 09:28 Dose: 40 mg Enoxaparin Sodium (Lovenox) 30 mg SC DAILY [facility] Last Admin: 03/20/17 09:31 Dose: Not Given Furosemide (Lasix) 20 mg PO DAILY [facility] Last Admin: 03/20/17 09:27 Dose: 20 mg Glimepiride (Amaryl) 1 mg PO BID [facility] Last Admin: 03/20/17 09:27 Dose: 1 mg Home Med (Leflunomide [Arava]) 20 mg PO DAILY [facility] Home Med (Vit C/E/Zn/Coppr/Lutein/Zeaxan [Preservision Areds 2 Softgel]) 1 each PO BID [facility] Hydromorphone HCl (Dilaudid) 1 mg IVP Q8H PRN PRN Reason: Pain, moderate (4-7) Last Admin: 03/16/17 21:09 Dose: 1 mg Cefepime HCl 1 gm/ Dextrose 50 mls @ 100 mls/hr IVPB Q12H [facility] Last Admin: 03/20/17 08:03 Dose: 100 mls/hr Ibuprofen (Motrin Tab) 600 mg PO TID [facility] Last Admin: 03/20/17 09:27 Dose: 600 mg Metformin HCl (Glucophage Xr) 750 mg PO BID [facility] Last Admin: 03/20/17 09:26 Dose: 750 mg Methimazole (Tapazole) 10 mg PO Q7D [facility] Last Admin: 03/18/17 10:06 Dose: 10 mg Methimazole (Tapazole) 10 mg PO Q7D [facility] Last Admin: 03/18/17 10:10 Dose: Not Given Metoprolol Tartrate (Lopressor) 100 mg PO BID [facility] Last Admin: 03/20/17 09:31 Dose: 100 mg Pantoprazole Sodium (Protonix Ec Tab) 40 mg PO DAILY [facility] Last Admin: 03/20/17 09:27 Dose: 40 mg Pantoprazole Sodium (Protonix Ec Tab) 20 mg PO DAILY [facility] Last Admin: 03/20/17 09:28 Dose: 20 mg Ranolazine (Ranexa) 500 mg PO Q12 [facility] Last Admin: 03/20/17 09:27 Dose: 500 mg Fluticasone/Salmeterol (Advair Diskus 250/50) 1 puff INH RQ12 [facility] - Labs Labs: 03/20/17 08:02 03/20/17 08:02 PT 12.1 SECONDS (9.7-12.2) 03/16/17 12:46 INR 1.1 03/16/17 12:46 APTT 32 SECONDS (21-34) 03/16/17 12:46 - Constitutional Appears: Non-toxic, Chronically Ill - Head Exam Head Exam: NORMOCEPHALIC - Eye Exam Eye Exam: PERRL. absent: Scleral icterus - ENT Exam ENT Exam: Normal External Ear Exam - Respiratory Exam Respiratory Exam: Decreased Breath Sounds - Cardiovascular Exam Cardiovascular Exam: REGULAR RHYTHM - GI/Abdominal Exam GI & Abdominal Exam: Distended, Soft - Rectal Exam Rectal Exam: NORMAL INSPECTION - Exam Exam: NORMAL INSPECTION Assessment and Plan (1) Cellulitis and abscess of left leg Status: Acute (2) Cellulitis and abscess of left leg Status: Acute - Assessment and Plan (Free Text) Assessment: cont rx
--- NOTE | 2017-03-20 16:01 | CP.PCM.PN ---
Subjective - Date & Time of Evaluation Date of Evaluation: 03/20/17 Time of Evaluation: 08:00 - Subjective Subjective: clinically same Objective - Vital Signs/Intake and Output Vital Signs (last 24 hours): Temp Pulse Resp BP Pulse Ox 99 F 102 H 20 165/81 H 97 03/20/17 08:00 03/20/17 08:00 03/20/17 08:00 03/20/17 10:30 03/20/17 10:30 Intake and Output: 03/20/17 03/20/17 06:59 18:59 Intake Total 510 Balance 510 - Medications Medications: Current Medications Albuterol Sulfate (Albuterol 0.083% Inhal Tete (2.5 Mg/3 Ml) Ud) 3 mg INH RQ6 [facility] Aspirin (Ecotrin) 81 mg PO DAILY [facility] Last Admin: 03/20/17 09:27 Dose: 81 mg Colchicine (Colocrys) 0.6 mg PO BID [facility] Last Admin: 03/19/17 11:51 Dose: 0.6 mg Enoxaparin Sodium (Lovenox) 40 mg SC DAILY [facility] Last Admin: 03/20/17 09:28 Dose: 40 mg Enoxaparin Sodium (Lovenox) 30 mg SC DAILY [facility] Last Admin: 03/20/17 09:31 Dose: Not Given Furosemide (Lasix) 20 mg PO DAILY [facility] Last Admin: 03/20/17 09:27 Dose: 20 mg Glimepiride (Amaryl) 1 mg PO BID [facility] Last Admin: 03/20/17 09:27 Dose: 1 mg Home Med (Leflunomide [Arava]) 20 mg PO DAILY [facility] Home Med (Vit C/E/Zn/Coppr/Lutein/Zeaxan [Preservision Areds 2 Softgel]) 1 each PO BID [facility] Hydromorphone HCl (Dilaudid) 1 mg IVP Q8H PRN PRN Reason: Pain, moderate (4-7) Last Admin: 03/16/17 21:09 Dose: 1 mg Cefepime HCl 1 gm/ Dextrose 50 mls @ 100 mls/hr IVPB Q12H [facility] Last Admin: 03/20/17 08:03 Dose: 100 mls/hr Ibuprofen (Motrin Tab) 600 mg PO TID [facility] Last Admin: 03/20/17 15:07 Dose: Not Given Metformin HCl (Glucophage Xr) 750 mg PO BID [facility] Last Admin: 03/20/17 09:26 Dose: 750 mg Methimazole (Tapazole) 10 mg PO Q7D [facility] Last Admin: 03/18/17 10:06 Dose: 10 mg Methimazole (Tapazole) 10 mg PO Q7D [facility] Last Admin: 03/18/17 10:10 Dose: Not Given Metoprolol Tartrate (Lopressor) 100 mg PO BID [facility] Last Admin: 03/20/17 09:31 Dose: 100 mg Pantoprazole Sodium (Protonix Ec Tab) 40 mg PO DAILY [facility] Last Admin: 03/20/17 09:27 Dose: 40 mg Pantoprazole Sodium (Protonix Ec Tab) 20 mg PO DAILY [facility] Last Admin: 03/20/17 09:28 Dose: 20 mg Ranolazine (Ranexa) 500 mg PO Q12 [facility] Last Admin: 03/20/17 09:27 Dose: 500 mg Fluticasone/Salmeterol (Advair Diskus 250/50) 1 puff INH RQ12 [facility] - Labs Labs: 03/20/17 08:02 03/20/17 08:02 PT 12.1 SECONDS (9.7-12.2) 03/16/17 12:46 INR 1.1 03/16/17 12:46 APTT 32 SECONDS (21-34) 03/16/17 12:46 - Constitutional Appears: Well - Head Exam Head Exam: ATRAUMATIC, NORMAL INSPECTION, NORMOCEPHALIC - Eye Exam Eye Exam: EOMI, Normal appearance, PERRL Pupil Exam: NORMAL ACCOMODATION, PERRL - ENT Exam ENT Exam: Mucous Membranes Moist, Normal Exam - Neck Exam Neck Exam: Full ROM, Normal Inspection. absent: Lymphadenopathy - Respiratory Exam Respiratory Exam: Decreased Breath Sounds - Cardiovascular Exam Cardiovascular Exam: REGULAR RHYTHM, +S1, +S2 - GI/Abdominal Exam GI & Abdominal Exam: Soft, Diminished Bowel Sounds - Rectal Exam Rectal Exam: Deferred
[2017-03-20 17:38] VITALS: BP 144/75; PULSE 85; TEMP 99.2; O2SAT 95
== END 2017-03-20 18:57 | disposition home health service (06) | DRG 603 ==
LOC: C.ER 11:53 → C.9E 16:05 → C.3T 20:18
PROVIDERS: ADMIT Internal Medicine Nephrology; ATTEND Internal Medicine Nephrology
DX: L03.115 Cellulitis of right lower limb (principal); J44.9 Chronic obstructive pulmonary disease, unspecified; E11.9 Type 2 diabetes mellitus without complications; L02.611 Cutaneous abscess of right foot; E66.01 Morbid (severe) obesity due to excess calories; K21.9 Gastro-esophageal reflux disease without esophagitis; I10 Essential (primary) hypertension; L02.415 Cutaneous abscess of right lower limb; E78.00 Pure hypercholesterolemia, unspecified; Z91.81 History of falling; Z79.84 Long term (current) use of oral hypoglycemic drugs